=== PATIENT | female | born 1995 | race Caucasian/White ===

== ENCOUNTER 2016-11-03 15:04 | Emergency (ER) | payer OTHER ==
[~2016-11-03] VITALS: Ht 177.8 cm; Wt 53.5 kg
[~2016-11-03 15:04] MED LIST: ACET50TAOT PO; DOXY-278 PO; IBUPOTC PO
[2016-11-03] MEDS ORDERED: ONDANSETRON 4MG/2ML VIAL (J2405) IV ONE (17:45)
[2016-11-03] MEDS ORDERED: PANTOPRAZOLE 40MG INJ (PROTONIX) (C9113) IV ONE (17:45)
[2016-11-03 18:04] LABS: CONTROL LINE UCG INT CTR LINE PRESENT
[2016-11-03 18:15] LABS: BASO % 0.7 % (0.0-1.0); EOS # 0.2 K/mm3 (0.0-0.50); EOS % 3.6 % (0.0-3.0); LARGE UNSTAINED CELL # 0.1 K/mm3 (0.0-0.4); LARGE UNSTAINED CELL % 1.1 % (0.0-4.0); LYMPH # 1.9 K/mm3 (1.5-6.5); LYMPH % 36.6 % (24.0-44.0); MEAN CORPUSCULAR HEMOGLOBIN 28.9 pg (27.0-33.0); MEAN CORPUSCULAR HGB CONC 32.1 g/dl (32.0-36.5); MEAN CORPUSCULAR VOLUME 89.9 fl (80.0-96.0); MONO # 0.3 K/mm3 (0.0-0.8); NEUTROPHILS # 2.6 K/mm3 (1.8-7.7); PLATELET COUNT, AUTOMATED 281 k/mm3 (150-450); RED CELL DISTRIBUTION WIDTH 13.8 % (11.5-14.5); WHITE BLOOD COUNT 4.9 K/mm3 (4.0-10.0)
[2016-11-03 18:41] LABS: ALBUMIN 4.1 GM/DL (3.2-5.2); ALBUMIN/GLOBULIN RATIO 1.21 (1.00-1.93); ALKALINE PHOSPHATASE 78 U/L (45-117); ALT/SGPT 26 U/L (12-78); ANION GAP 6 MEQ/L (8-16); AST/SGOT 19 U/L (15-37); BILIRUBIN,DIRECT 0.1 MG/DL (0.0-0.2); BILIRUBIN,TOTAL 0.3 MG/DL (0.2-1.0); BLOOD UREA NITROGEN 16 MG/DL (7-18); CALCIUM LEVEL 9.3 MG/DL (8.5-10.1); CARBON DIOXIDE LEVEL 29 MEQ/L (21-32); CHLORIDE LEVEL 106 MEQ/L (98-107); GLUCOSE, FASTING 84 MG/DL (70-105); SODIUM LEVEL 141 MEQ/L (136-145); TOTAL PROTEIN 7.5 GM/DL (6.4-8.2)
--- NOTE | 2016-11-03 18:45 | REP ---
Clinical: Chest pain . Comparison: 03/01/2016 . Technique: PA and lateral. Findings: The mediastinum and cardiac silhouette are normal. The lung vill[place]uerte are clear and without acute consolidation, effusion, or pneumothorax. The skeletal structures are intact and normal. Impression: 1. No acute cardiopulmonary process. Signed by Jaen Marie Sweeney MD 11/03/2016 06:36 P
[2016-11-03 21:14] VITALS: BP 129/75
--- NOTE | 2016-11-04 09:20 | REP ---
PELVIC ULTRASOUND: Real-time sonographic evaluation of the pelvis is performed utilizing transabdominal technique. The bladder measures 3.9 x 2.0 x 6.2 cm. The uterus measures 5.8 x 3.0 x 3.6 cm. The endometrial stripe measures 2 mm with no endometrial fluid collection. The ovaries cannot be seen. No adnexal mass or free fluid is seen. The study is limited due to bowel gas and suboptimal distention of the bladder. The patient declined endovaginal ultrasound. IMPRESSION: No gross mass or free fluid in the pelvis. Suboptimal exam. The patient declined endovaginal exam. The ovaries could not be visualized. Signed by Kingston Jenkins MD 11/04/2016 12:28 P
--- NOTE | 2016-11-04 20:54 | ECGEPIP ---
Stationary ECG Study [facility] - ED Test Date: 2016-11-03 Pat Name: BREANNA FARAH Department: Room: - Gender: F Traffic Control Supervisor: nuno : 1995 Requested By: René Nogueira PA-C Order Number: [id number] Reading MD: Jacqueline Connor Measurements Intervals [place] Rate: 87 P: 62 AR: 145 QRS: 59 QRSD: 89 T: 38 QT: 336 QTc: 405 Interpretive Statements SINUS RHYTHM INCREASED RATE 06/05/14 Electronically Signed On 11-04-2016 20:53:50 EDT by Jacqueline Connor
== END 2016-11-03 21:16 | disposition left against medical advice (07) ==
LOC: M ED 16:15
DX: R10.9 Unspecified abdominal pain (principal); R07.9 Chest pain, unspecified; F50.00 Anorexia nervosa, unspecified; F17.210 Nicotine dependence, cigarettes, uncomplicated
CPT/HCPCS: 71020; 76856; 80048; 80076; 81001; 82550; 82553; 83690; 84703; 85025; 85379; 93005; 96374; 96375; 99283; C9113; J2405

== ENCOUNTER → 2018-06-30 | Outpatient (REF) | payer OTHER ==
[2018-06-30 13:12] LABS: CONTROL LINE UCG INT CTR LINE PRESENT; URINE PREG TEST NEGATIVE (NEGATIVE)
== END ==
LOC: M SFHCADAM 12:36
DX: N94.6 Dysmenorrhea, unspecified (principal)

== ENCOUNTER → 2018-07-31 | Outpatient (CLI) | payer OTHER ==
[~2018-07-31] MED LIST changes: +ACET500T15 PO; -ACET50TAOT PO; -DOXY-278 PO; +DOXY-350 PO
--- NOTE | 2018-08-01 03:49 | REP ---
Clinical: Trauma. Technique: AP, lateral, bilateral oblique views right wrist . Findings: The carpal bones, surrounding osseous structures, soft tissues, and joint spaces are normal. There is no evidence for acute fracture or dislocation. No subcutaneous emphysema or radiodense foreign body. Impression: Normal wrist series. No acute fracture or dislocation Electronically Signed by Jean Marie Sweeney MD 08/01/2018 03:40 A
--- NOTE | 2018-08-01 03:50 | REP ---
Clinical: Trauma. Technique: AP, lateral, bilateral oblique and sunrise views right knee . Findings: The osseous structures and joint spaces are intact and normal. There is no evidence for acute fracture or dislocation. No joint effusion is appreciated. Surrounding soft tissues are unremarkable. No subcutaneous emphysema or radiodense foreign body. Impression: Normal examination. No acute fracture or dislocation. Electronically Signed by Jean Marie Sweeney MD 08/01/2018 03:41 A
== END ==
LOC: M ADAMS 13:19
PROVIDERS: ATTEND Family Medicine
DX: M25.531 Pain in right wrist (principal); M23.51 Chronic instability of knee, right knee

== ENCOUNTER 2019-02-13 08:12 | Emergency (ER) | payer OTHER ==
[~2019-02-13] VITALS: Ht 177.8 cm; Wt 97.3 kg
[2019-02-13 08:12] VITALS: BP 142/95
[2019-02-13] MEDS ORDERED: HYDR-3363 PO (08:18)
[2019-02-13] MEDS ORDERED: IBUP-1022 PO (08:18)
== END 2019-02-13 08:58 | disposition home or self-care (01) ==
LOC: M ED 08:12
DX: G89.29 Other chronic pain (principal); M25.561 Pain in right knee; M25.562 Pain in left knee; F17.210 Nicotine dependence, cigarettes, uncomplicated

== ENCOUNTER 2019-03-18 15:26 | Emergency (ER) | payer OTHER ==
[~2019-03-18] VITALS: Ht 177.8 cm; Wt 97.4 kg
[~2019-03-18 15:26] MED LIST changes: +HYDR-3363 PO; +IBUP-1022 PO
[2019-03-18 16:17] LABS: HEMATOCRIT 37.5 % (36.0-47.0); HEMOGLOBIN 11.9 g/dl (12.0-15.5); MEAN CORPUSCULAR HEMOGLOBIN 27.3 pg (27.0-33.0); MEAN CORPUSCULAR HGB CONC 31.7 g/dl (32.0-36.5); PLATELET COUNT, AUTOMATED 363 10^3/uL (150-450); RED BLOOD COUNT 4.36 10^6/uL (4.00-5.40); WHITE BLOOD COUNT 8.7 10^3/uL (4.0-10.0)
[2019-03-18 16:48] LABS: BLOOD UREA NITROGEN 8 MG/DL (7-18); CALCIUM LEVEL 9.3 MG/DL (8.5-10.1); CARBON DIOXIDE LEVEL 28 MEQ/L (21-32); CHLORIDE LEVEL 105 MEQ/L (98-107); CREATININE FOR GFR 0.64 MG/DL (0.55-1.30); GLOMERULAR FILTRATION RATE > 60.0 (>60); GLUCOSE, FASTING 78 MG/DL (70-100); POTASSIUM SERUM 4.1 MEQ/L (3.5-5.1); SODIUM LEVEL 139 MEQ/L (136-145)
[2019-03-18] MEDS ORDERED: MUPIROCIN 2% OINT 22 GM TUBE TOP ONE (17:45)
[2019-03-18 17:56] VITALS: BP 135/78
[2019-03-18 19:43] LABS: CHLAMYDIA DNA AMPLIFICATION NEGATIVE (NEGATIVE); GC DNA AMPLIFICATION NEGATIVE (NEGATIVE)
== END 2019-03-18 18:28 | disposition home or self-care (01) ==
LOC: M ED 15:26
DX: L03.314 Cellulitis of groin (principal); R22.9 Localized swelling, mass and lump, unspecified; F33.9 Major depressive disorder, recurrent, unspecified; F41.9 Anxiety disorder, unspecified; K58.9 Irritable bowel syndrome, unspecified; Z77.098 Contact with and (suspected) exposure to other hazardous, chiefly nonmedicinal, chemicals; F12.20 Cannabis dependence, uncomplicated

== ENCOUNTER → 2019-03-23 | Outpatient (CLI) | payer OTHER ==
--- NOTE | 2019-03-23 09:44 | REP ---
MRI BILATERAL KNEES: TECHNIQUE: Axial proton density fat saturation, sagittal proton density T2 STIR, water excitation, coronal proton density, proton density fat saturation. RIGHT KNEE: The menisci appear intact with no evidence of a tear. The cruciate and collateral ligaments are intact. The extensor mechanism is intact. A 5 mm cyst is seen along the tibial insertion of the anterior cruciate ligament lateral aspect. There is mild chondromalacia of the patella. Medial and lateral patellar retinacula are intact. There is mild marrow edema in the upper aspect of the lateral femoral condyle. This is suggesting a mild bone bruise. There is also mild marrow edema in the lower pole of the patella, possibly a bone bruise or stress related changes in the bone. There is a small joint effusion. No popliteal cyst is seen. The ratio of patellar tendon length to patellar length is approximately 1.5, compatible with patella kristina. IMPRESSION: No evidence of internal derangement. Mild chondromalacia of the patella. A 5 mm cyst along the lateral margin of the anterior cruciate ligament tibial insertion. Small joint effusion. Nonspecific marrow edema in the lower pole of the patella and upper aspect of lateral femoral condyle. The ratio of patellar tendon length to patellar length is approximately 1.5, compatible with patella kristina. LEFT KNEE: The menisci are intact. Cruciate and collateral ligaments are intact. Extensor mechanism was intact. There is mild chondromalacia of the patella. The medial and lateral patellar retinacula are intact. There is no bone marrow edema or occult fracture. There is a normal amount of joint fluid. There is a sliver of fluid in the medial popliteal fossa between the semimembranous and medial head of gastrocnemius. I see no other significant finding. The ratio of the patellar tendon length to the length of the patella is approximately 1.35, compatible with patella kristina. IMPRESSION: Mild chondromalacia of the patella. No evidence of internal derangement. Sliver of fluid in the medial popliteal fossa. The ratio of the patellar tendon length to the length of the patella is approximately 1.35, compatible with patella kristina. Electronically Signed by Kingston Jenkins MD 03/26/2019 11:12 A
== END ==
LOC: M RAD 06:33
PROVIDERS: ATTEND Orthopaedic Surgery Sports Medicine
DX: M25.361 Other instability, right knee (principal); M25.362 Other instability, left knee

== ENCOUNTER 2019-05-15 09:50 | Emergency (ER) | payer OTHER ==
[~2019-05-15] VITALS: Ht 177.8 cm; Wt 96.6 kg
[2019-05-15 13:18] VITALS: BP 130/70
== END 2019-05-15 13:19 | disposition home or self-care (01) ==
LOC: M ED 09:50
DX: Z20.1 Contact with and (suspected) exposure to tuberculosis (principal)

== ENCOUNTER 2019-11-03 16:44 | Emergency (ER) | payer OTHER, SELFPAY ==
[~2019-11-03] VITALS: Ht 177.8 cm; Wt 86.1 kg
[2019-11-03 17:49] VITALS: BP 144/88
--- NOTE | 2019-11-03 20:40 | ED PDOC ---
Post-Departure Follow-Up called patient with respiratory panel results and educated her on standard URI precautions. all questions answered and patient was in good understanding JOSE SANTOS PA-C. Nov 03, 2019 20:40
== END 2019-11-03 17:52 | disposition home or self-care (01) ==
LOC: M ED 16:44
DX: J02.8 Acute pharyngitis due to other specified organisms (principal); R05 Cough; F41.9 Anxiety disorder, unspecified; F32.9 Major depressive disorder, single episode, unspecified; J45.909 Unspecified asthma, uncomplicated; R63.0 Anorexia

== ENCOUNTER 2019-12-31 19:08 | Inpatient (IN) | payer MEDICAID, OTHER, SELFPAY ==
[~2019-12-31] VITALS: Ht 177.8 cm; Wt 50.0 kg
[2019-12-31] MEDS ORDERED: NICOTINE 21MG/24HR 1 EA TRANSDERMAL TD ONE (19:45)
[2019-12-31 20:14] LABS: HEMATOCRIT 36.3 % (36.0-47.0); HEMOGLOBIN 11.6 g/dl (12.0-15.5); MEAN CORPUSCULAR HEMOGLOBIN 26.3 pg (27.0-33.0); MEAN CORPUSCULAR VOLUME 82.3 fl (80.0-96.0); PLATELET COUNT, AUTOMATED 535 10^3/uL (150-450); RED BLOOD COUNT 4.41 10^6/uL (4.00-5.40); WHITE BLOOD COUNT 7.9 10^3/uL (4.0-10.0)
[2019-12-31 20:37] LABS: HCG, SERUM QUALITATIVE NEGATIVE (NEGATIVE)
[2019-12-31 20:48] LABS: ALT/SGPT 20 U/L (12-78); BILIRUBIN,DIRECT 0.2 MG/DL (0.0-0.2); BILIRUBIN,TOTAL 0.3 MG/DL (0.2-1.0); BLOOD UREA NITROGEN 5 MG/DL (7-18); CALCIUM LEVEL 8.9 MG/DL (8.5-10.1); CARBON DIOXIDE LEVEL 24 MEQ/L (21-32); CHLORIDE LEVEL 116 MEQ/L (98-107); CREATININE FOR GFR 0.68 MG/DL (0.55-1.30); ETHYL ALCOHOL (ETHANOL) 0.296 % (0.000-0.010); GLOMERULAR FILTRATION RATE > 60.0 (>60); GLUCOSE, FASTING 121 MG/DL (70-100); SALICYLATE LEVEL < 1.7 MG/DL (5.0-30.0); SODIUM LEVEL 147 MEQ/L (136-145); THYROID STIMULATING HORMONE 0.779 uIU/ML (0.358-3.740); TOTAL PROTEIN 7.8 GM/DL (6.4-8.2)
[2019-12-31 20:49] LABS: ACETAMINOPHEN LEVEL < 2.0 UG/ML (10.0-30.0)
[2019-12-31] MEDS ORDERED: OLANZapine ORAL DISINTEGRATING TAB 5MG PO SCH (21:00)
[2019-12-31 21:02] LABS: AMPHETAMINES LEVEL URINE POSITIVE (NEGATIVE); BARBITURATES URINE NEGATIVE (NEGATIVE); BENZODIAZEPINES URINE NEGATIVE (NEGATIVE); CANNABINOIDS URINE NEGATIVE (NEGATIVE); COCAINE METABOLITE URINE NEGATIVE (NEGATIVE); METHADONE URINE NEGATIVE (NEGATIVE); OPIATES URINE NEGATIVE (NEGATIVE); PHENCYCLIDINE URINE NEGATIVE (NEGATIVE)
[2020-01-01] MEDS ORDERED: MOM 30ML SUSPENSION UDC PO PRN (06:00)
[2020-01-01] MEDS ORDERED: OLANZapine ORAL DISINTEGRATING TAB 5MG PO PRN (06:00)
[2020-01-01] MEDS ORDERED: ACETAMINOPHEN TAB 650MG DOSE (2X325MG) PO PRN (06:00)
[2020-01-01] MEDS ORDERED: MAALOX 30 ML SUSP *UDC PO PRN (06:00)
[2020-01-01] MEDS ORDERED: traZODone 50 MG TAB PO PRN (06:00)
[2020-01-01] MEDS ORDERED: ACETAMINOPHEN 325 MG TAB As Ordered ONE (07:08)
[2020-01-01 11:00] VITALS: BP 150/94
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
--- NOTE | 2020-01-01 11:29 | MHDSPDOC ---
[facility] Discharge Summary Discharge Summary DATE OF ADMISSION: January 01, 2020 at 05:54 DATE OF DISCHARGE: 01/01/20 please see h/p for same day discharge dx, clinical course and reasoning Vital Signs/I&Os Vital Signs Date Time Temp Pulse Resp B/P (MAP) Pulse Ox O2 Delivery O2 Flow Rate FiO2 01/01/20 06:52 97.8 93 18 138/80 (99) 100 Laboratory Data Labs 24H Laboratory Tests 2 12/31/19 19:54: Nucleated Red Blood Cells % (auto) 0.0, Anion Gap 7L, Glomerular Filtration Rate > 60.0, Calcium Level 8.9, Total Bilirubin 0.3, Direct Bilirubin 0.2, Aspartate Amino Transf (AST/SGOT) 17, Alanine Aminotransferase (ALT/SGPT) 20, Alkaline Phosphatase 96, Total Protein 7.8, Albumin 4.0, Albumin/Globulin Ratio 1.1L, Thyroid Stimulating Hormone (TSH) 0.779, Human Chorionic Gonadotropin, Qual NEGATIVE, Salicylates Level < 1.7L, Urine Opiates Screen NEGATIVE, Urine Methadone Screen NEGATIVE, Acetaminophen Level < 2.0L, Urine Barbiturates Screen NEGATIVE, Urine Phencyclidine Screen NEGATIVE, Urine Amphetamines Screen POSITIVEH, Urine Benzodiazepines Screen NEGATIVE, Urine Cocaine Metabolite Screen NEGATIVE, Urine Cannabinoids Screen NEGATIVE, Ethyl Alcohol Level 0.296H CBC/BMP Laboratory Tests 12/31/19 19:54 Medications Unable to Obtain Active Prescriptions or Reported Meds Allergies Coded Allergies: No Known Allergies (Unverified , 02/24/16) ROBERTO GREGORIO DO January 01, 2020 11:28
--- NOTE | 2020-01-01 15:09 | ECGEPIP ---
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
--- NOTE | 2020-01-01 15:58 | HPEPDOC ---
General Date of Admission January 01, 2020 at 05:54 Date of Service: January 01, 2020 Chief Complaint The patient is a 24-year-old female admitted with a reason for visit of Unspecified Mood Disorder. Source: Patient Exam Limitations: No limitations Timing/Duration: Day(s) Severity: Moderate History of Present Illness HISTORY OF PRESENT ILLNESS: Patient is 23 years old female with past medical history of bipolar disorder and depression, who was admitted in the hospital with suicidal ideation. She denied any cardiovascular problem, breathing problem, GI problem or dysuria. He denies fever, chills, nausea, vomiting, shortness of breath, palpitations, diarrhea or dysuria. Early in the morning patient had some chest discomfort, intermittent without any radiation. EKG was normal Home Medications Unable to Obtain Active Prescriptions or Reported Meds Allergies Coded Allergies: No Known Allergies (Unverified , 02/24/16) Past Medical History Medical History Bipolar disorder, depression Family History Mother from alcoholism Father had CHF Social History * Smoker: current smoker Alcohol: heavy Drugs: marijuana A-FIB/CHADSVASC A-FIB History Current/History of A-Fib/PAF?: No Current PO Anticoag Therapy: No Review of Systems Constitutional: Denies: Chills Eyes: Denies: Vision change ENT: Denies: Head Aches Skin: Denies: Rash, Lesions Pulmonary: Denies: Dyspnea Cardiovascular: Denies: Chest Pain Gastrointestinal: Denies: Nausea, Vomiting Genitourinary: Denies: Dysuria Hematologic: Denies: Bruising Endocrine: Denies: Polydipsia Musculoskeletal: Denies: Neck Pain Neurological: Denies: Weakness Psych: Reports: Anxiety; Denies: Mood Normal Physical Examination General Exam: Positive: Alert Eye Exam: Positive: PERRLA ENT Exam: Positive: Atraumatic Neck Exam: Positive: Supple; Negative: JVD Chest Exam: Positive: Clear to auscultation Heart Exam: Positive: Rate Normal Telemetry: Positive: No significant arrhythmia Abdomen Exam: Positive: Normal bowel sounds Extremity Exam: Negative: Clubbing Skin Exam: Positive: Nl turgor and temperature Neuro Exam: Positive: Strength at 5/5 X4 ext Psych Exam: Positive: Anxiety Vital Signs Vital Signs Date Time Temp Pulse Resp B/P (MAP) Pulse Ox O2 Delivery O2 Flow Rate FiO2 01/01/20 11:00 98.3 80 16 150/94 (112) 100 Room Air Laboratory Data Labs 24H Laboratory Tests 2 12/31/19 19:54: Nucleated Red Blood Cells % (auto) 0.0, Anion Gap 7L, Glomerular Filtration Rate > 60.0, Calcium Level 8.9, Total Bilirubin 0.3, Direct Bilirubin 0.2, Aspartate Amino Transf (AST/SGOT) 17, Alanine Aminotransferase (ALT/SGPT) 20, Alkaline Phosphatase 96, Total Protein 7.8, Albumin 4.0, Albumin/Globulin Ratio 1.1L, Thyroid Stimulating Hormone (TSH) 0.779, Human Chorionic Gonadotropin, Qual NEGATIVE, Salicylates Level < 1.7L, Urine Opiates Screen NEGATIVE, Urine Methadone Screen NEGATIVE, Acetaminophen Level < 2.0L, Urine Barbiturates Screen NEGATIVE, Urine Phencyclidine Screen NEGATIVE, Urine Amphetamines Screen PO SITIVEH, Urine Benzodiazepines Screen NEGATIVE, Urine Cocaine Metabolite Screen NEGATIVE, Urine Cannabinoids Screen NEGATIVE, Ethyl Alcohol Level 0.296H CBC/BMP Laboratory Tests 12/31/19 19:54 Assessment/Plan Patient is 23 years old female with past medical history of bipolar disorder and depression, who was admitted in the hospital with suicidal ideation. She denied any cardiovascular problem, breathing problem, GI problem or dysuria. He denies fever, chills, nausea, vomiting, shortness of breath, palpitations, diarrhea or dysuria. Early in the morning patient had some chest discomfort, intermittent without any radiation. EKG was normal Problems (1) Unspecified mood [affective] disorder Status: Acute Problem Text: will defer treatment to psych team (2) Chest pain Status: Acute Problem Text: Unlikely cardiac etiology EKG was normal Plan / VTE VTE Prophylaxis Ordered?: No VTE Exclusion Mechanical Proph: Low Risk for VTE MANUEL SMITH DO January 01, 2020 15:58
== END 2020-01-01 16:33 | disposition home or self-care (01) | DRG 775 ==
LOC: M ED 19:08 → M ED INP 01-01 05:54 → M PSY 01-01 10:33
PROVIDERS: ADMIT Psychiatry & Neurology Psychiatry; ATTEND Psychiatry & Neurology Addiction Medicine
DX: F19.94 Other psychoactive substance use, unspecified with psychoactive substance-induced mood disorder (principal); F10.10 Alcohol abuse, uncomplicated; F15.90 Other stimulant use, unspecified, uncomplicated; F17.200 Nicotine dependence, unspecified, uncomplicated; R07.9 Chest pain, unspecified

== ENCOUNTER → 2020-02-01 | Outpatient (CLI) | payer MEDICAID, OTHER ==
[2020-02-01 11:54] LABS: BASO # 0.1 10^3/uL (0.0-0.2); BASO % 1.3 % (0.0-1.0); EOS # 0.2 10^3/uL (0.0-0.5); EOS % 4.3 % (0.0-3.0); HEMATOCRIT 29.2 % (36.0-47.0); HEMOGLOBIN 8.9 g/dl (12.0-15.5); LYMPH # 1.7 10^3/uL (1.5-5.0); MEAN CORPUSCULAR HEMOGLOBIN 25.6 pg (27.0-33.0); MEAN CORPUSCULAR HGB CONC 30.5 g/dl (32.0-36.5); MEAN CORPUSCULAR VOLUME 84.1 fl (80.0-96.0); MONO # 0.3 10^3/uL (0.0-0.8); MONO % 7.1 % (0.0-5.0); NEUTROPHILS # 1.8 10^3/uL (1.5-8.5); PLATELET COUNT, AUTOMATED 426 10^3/uL (150-450); RED BLOOD COUNT 3.47 10^6/uL (4.00-5.40); WHITE BLOOD COUNT 3.9 10^3/uL (4.0-10.0)
[2020-02-01 12:30] LABS: ALBUMIN 3.6 GM/DL (3.2-5.2); ALT/SGPT 16 U/L (12-78); BILIRUBIN,TOTAL 0.4 MG/DL (0.2-1.0); BLOOD UREA NITROGEN 9 MG/DL (7-18); CALCIUM LEVEL 9.2 MG/DL (8.5-10.1); CARBON DIOXIDE LEVEL 26 MEQ/L (21-32); CHLORIDE LEVEL 107 MEQ/L (98-107); CHOLESTEROL LEVEL 130 MG/DL (<200); CREATININE FOR GFR 0.53 MG/DL (0.55-1.30); FREE THYROXINE INDEX 2.9 % (1.3-4.8); GLOMERULAR FILTRATION RATE > 60.0 (>60); GLUCOSE, FASTING 77 MG/DL (70-100); HDL CHOLESTEROL 57 MG/DL (>40); LDL CHOLESTEROL 63 MG/DL (<100); NON-HDL-C 73 MG/DL; SODIUM LEVEL 138 MEQ/L (136-145); T UPTAKE 35 % (30-39); THYROXINE (T4) 8.2 UG/DL (4.5-12.0); TOTAL PROTEIN 6.8 GM/DL (6.4-8.2); TRIGLYCERIDES LEVEL 52 MG/DL (<150)
--- NOTE | 2020-02-02 13:01 | ECGEPIP ---
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
== END ==
LOC: M LAB 09:46
PROVIDERS: ATTEND Nurse Practitioner Psychiatric/Mental Health
DX: F34.1 Dysthymic disorder (principal); F50.9 Eating disorder, unspecified

== ENCOUNTER → 2020-03-17 | Outpatient (CLI) | payer OTHER | LOC: M RAD 11:12 | PROVIDERS: ATTEND Physician Assistant | DX: M25.512 Pain in left shoulder (principal) ==

== ENCOUNTER → 2020-04-09 | Outpatient (REF) | payer OTHER ==
[2020-04-09 19:37] LABS: APPEARANCE, URINE TURBID (CLEAR); BACTERIA, URINE AUTO 1+ (NEGATIVE); BILIRUBIN, URINE AUTO NEGATIVE (NEGATIVE); BLOOD, URINE BLOOD NEGATIVE (NEGATIVE); COLOR, URINE YELLOW (YELLOW); GLUCOSE, URINE (UA) AUTO NEGATIVE (NEGATIVE); KETONE, URINE AUTO NEGATIVE (NEGATIVE); LEUKOCYTE ESTERASE, URINE AUTO NEGATIVE (NEGATIVE); NITRITE, URINE AUTO NEGATIVE (NEGATIVE); PROTEIN, URINE AUTO NEGATIVE (NEGATIVE); RBC, URINE AUTO 0 /HPF (0-3); SPECIFIC GRAVITY URINE AUTO 1.011 (1.002-1.035); SQUAMOUS EPITHELIAL CELL UR AU 0 /HPF (0-6); UROBILINOGEN, URINE AUTO 0.2 mg/dL (0.0-2.0); WBC, URINE AUTO 0 /HPF (0-3)
[2020-04-09 21:24] LABS: CHLAMYDIA DNA AMPLIFICATION NEGATIVE (NEGATIVE); GC DNA AMPLIFICATION NEGATIVE (NEGATIVE)
== END ==
LOC: M LAB REF 19:04
PROVIDERS: ATTEND Physician Assistant
DX: N39.0 Urinary tract infection, site not specified (principal)

== ENCOUNTER → 2020-08-07 | Outpatient (REF) | payer OTHER ==
[2020-08-07 13:37] LABS: APPEARANCE, URINE HAZY (CLEAR); BACTERIA, URINE AUTO NEGATIVE (NEGATIVE); BILIRUBIN, URINE AUTO NEGATIVE (NEGATIVE); BLOOD, URINE BLOOD NEGATIVE (NEGATIVE); COLOR, URINE YELLOW (YELLOW); GLUCOSE, URINE (UA) AUTO NEGATIVE (NEGATIVE); KETONE, URINE AUTO NEGATIVE (NEGATIVE); LEUKOCYTE ESTERASE, URINE AUTO NEGATIVE (NEGATIVE); MUCUS, URINE SMALL (NEGATIVE); NITRITE, URINE AUTO NEGATIVE (NEGATIVE); PROTEIN, URINE AUTO NEGATIVE (NEGATIVE); RBC, URINE AUTO 1 /HPF (0-3); SPECIFIC GRAVITY URINE AUTO 1.013 (1.002-1.035); SQUAMOUS EPITHELIAL CELL UR AU 7 /HPF (0-6); UROBILINOGEN, URINE AUTO 0.2 mg/dL (0.0-2.0); WBC, URINE AUTO 1 /HPF (0-3)
[2020-08-07 15:29] LABS: CHLAMYDIA DNA AMPLIFICATION NEGATIVE (NEGATIVE); GC DNA AMPLIFICATION NEGATIVE (NEGATIVE)
== END ==
LOC: M LAB REF 12:58
PROVIDERS: ATTEND Physician Assistant
DX: N39.0 Urinary tract infection, site not specified (principal)

== ENCOUNTER → 2020-10-07 | Outpatient (CLI) | payer OTHER ==
--- NOTE | 2020-10-07 11:51 | REP ---
INDICATION: RT RIB PAIN, R/O FRACTURE. COMPARISON: November 03, 2016.. TECHNIQUE: Four views including PA chest. FINDINGS: PA chest radiograph is normal. There is no evidence of pneumothorax or hydrothorax. Mediastinum is not widened. Heart size is normal. Pulmonary vasculature is not increased. Multiple views of the right rib cage show intact right ribs without evidence of rib fracture or bony destructive lesion. IMPRESSION: Negative right rib series. <Electronically signed by Sloan Montenegro > 10/07/20 1142
== END ==
LOC: M RAD 11:20
PROVIDERS: ATTEND Physician Assistant Medical
DX: R07.81 Pleurodynia (principal)

== ENCOUNTER 2021-03-13 23:27 | Emergency (ER) | payer OTHER ==
[~2021-03-13] VITALS: Ht 177.8 cm; Wt 61.9 kg
[2021-03-13 23:31] VITALS: BP 158/92
[2021-03-14] MEDS ORDERED: TOPA50TA8 PO (00:27)
== END 2021-03-14 00:30 | disposition left against medical advice (07) ==
LOC: M ED 23:27
DX: Z53.21 Procedure and treatment not carried out due to patient leaving prior to being seen by health care provider (principal)

== ENCOUNTER 2022-01-30 17:07 | Emergency (ER) | payer OTHER ==
[~2022-01-30] VITALS: Ht 177.8 cm; Wt 77.2 kg
[~2022-01-30 17:07] MED LIST changes: +TOPA50TA8 PO
[2022-01-30] MEDS ORDERED: NAPR-837 PO (18:40)
[2022-01-30 18:51] VITALS: BP 140/90
== END 2022-01-30 19:04 | disposition home or self-care (01) ==
LOC: M ED 17:07
DX: M72.2 Plantar fascial fibromatosis (principal)

== ENCOUNTER 2022-02-15 06:05 | Emergency (ER) | payer OTHER ==
[~2022-02-15] VITALS: Ht 177.8 cm; Wt 63.6 kg
[~2022-02-15 06:05] MED LIST changes: +NAPR-837 PO
[2022-02-15] MEDS ORDERED: ACETAMINOPHEN 325 MG TAB PO ONE (07:35)
[2022-02-15 07:37] LABS: BASO # 0.1 10^3/uL (0.0-0.2); BASO % 1.8 % (0.0-1.0); EOS # 0.4 10^3/uL (0.0-0.5); EOS % 5.7 % (0.0-3.0); LYMPH # 1.2 10^3/uL (1.5-5.0); LYMPH % 20.2 % (24.0-44.0); MEAN CORPUSCULAR HEMOGLOBIN 16.1 pg (27.0-33.0); MEAN CORPUSCULAR HGB CONC 25.8 g/dl (32.0-36.5); MEAN CORPUSCULAR VOLUME 62.5 fl (80.0-96.0); MONO # 0.6 10^3/uL (0.0-0.8); MONO % 9.3 % (2.0-8.0); NEUTROPHILS # 3.8 10^3/uL (1.5-8.5); NEUTROPHILS % 62.3 % (36.0-66.0); PLATELET COUNT, AUTOMATED 510 10^3/uL (150-450); RED BLOOD COUNT 3.84 10^6/uL (4.00-5.40); WHITE BLOOD COUNT 6.1 10^3/uL (4.0-10.0)
[2022-02-15 07:40] LABS: HEMOGLOBIN 6.2 g/dl (12.0-15.5)
[2022-02-15 07:52] LABS: INR 1.01; PROTHROMBIN TIME 13.7 SECONDS (12.7-14.5)
[2022-02-15 07:54] LABS: BLOOD UREA NITROGEN 15 MG/DL (7-18); CALCIUM LEVEL 9.6 MG/DL (8.5-10.1); CARBON DIOXIDE LEVEL 26 MEQ/L (21-32); CHLORIDE LEVEL 108 MEQ/L (98-107); CREATININE FOR GFR 0.59 MG/DL (0.55-1.30); GLOMERULAR FILTRATION RATE > 60.0 (>60); GLUCOSE, FASTING 95 MG/DL (70-100); POTASSIUM SERUM 4.1 MEQ/L (3.5-5.1); SODIUM LEVEL 141 MEQ/L (136-145)
[2022-02-15 07:57] LABS: PARTIAL THROMBOPLASTIN TIME 22.7 SECONDS (25.9-37.0)
[2022-02-15 08:03] LABS: HCG, SERUM QUALITATIVE NEGATIVE (NEGATIVE)
[2022-02-15 10:25] VITALS: BP 130/65
[2022-02-15 11:10] VITALS: BP 133/71
[2022-02-15 11:39] VITALS: BP 138/74
[2022-02-15 12:39] VITALS: BP 146/85
== END 2022-02-15 12:47 | disposition home or self-care (01) ==
LOC: M ED 06:05
DX: R22.42 Localized swelling, mass and lump, left lower limb (principal); D64.9 Anemia, unspecified; I10 Essential (primary) hypertension; F17.200 Nicotine dependence, unspecified, uncomplicated
CPT/HCPCS: 36430; 80048; 84703; 85025; 85610; 85730; 86850; 86900; 86901; 86920; 93971; 99284; P9016

== ENCOUNTER 2022-04-22 21:02 | Emergency (ER) | payer OTHER ==
[~2022-04-22] VITALS: Ht 177.8 cm; Wt 77.9 kg
[2022-04-22 21:05] VITALS: BP 136/94
[2022-04-22] MEDS ORDERED: CEPH500T PO (21:26)
[2022-04-22] MEDS ORDERED: TOPA50TA8 PO (21:26)
== END 2022-04-23 02:17 | disposition left against medical advice (07) ==
LOC: M ED 21:02
DX: Z53.21 Procedure and treatment not carried out due to patient leaving prior to being seen by health care provider (principal)

== ENCOUNTER 2022-05-09 16:16 | Emergency (ER) | payer OTHER ==
[~2022-05-09] VITALS: Ht 177.8 cm; Wt 76.8 kg
[~2022-05-09 16:16] MED LIST changes: +CEPH500T PO
[2022-05-09 18:05] LABS: BASO # 0.1 10^3/uL (0.0-0.2); EOS # 0.2 10^3/uL (0.0-0.5); EOS % 4.8 % (0.0-3.0); HEMATOCRIT 33.9 % (36.0-47.0); HEMOGLOBIN 8.9 g/dl (12.0-15.5); LYMPH % 22.8 % (24.0-44.0); MEAN CORPUSCULAR HEMOGLOBIN 18.5 pg (27.0-33.0); MEAN CORPUSCULAR HGB CONC 26.3 g/dl (32.0-36.5); MEAN CORPUSCULAR VOLUME 70.3 fl (80.0-96.0); MONO # 0.3 10^3/uL (0.0-0.8); MONO % 6.6 % (2.0-8.0); NEUTROPHILS # 2.9 10^3/uL (1.5-8.5); NEUTROPHILS % 63.4 % (36.0-66.0); PLATELET COUNT, AUTOMATED 506 10^3/uL (150-450); RED BLOOD COUNT 4.82 10^6/uL (4.00-5.40); WHITE BLOOD COUNT 4.6 10^3/uL (4.0-10.0)
[2022-05-09 18:36] LABS: HCG, SERUM QUALITATIVE NEGATIVE (NEGATIVE)
[2022-05-09 18:39] LABS: ALBUMIN 4.3 GM/DL (3.2-5.2); ALT/SGPT 18 U/L (12-78); BILIRUBIN,DIRECT 0.2 MG/DL (0.0-0.2); BILIRUBIN,TOTAL 0.7 MG/DL (0.2-1.0); LIPASE 126 U/L (73-393); TOTAL PROTEIN 8.1 GM/DL (6.4-8.2)
[2022-05-09 20:03] LABS: FERRITIN 7 NG/ML (8-252); IRON (FE) 125 UG/DL (50-170); PERCENT SATURATION 22.3 % (13.2-45.0); TOTAL IRON BINDING CAPACITY 561 UG/DL (250-450)
[2022-05-09 20:17] VITALS: BP 149/97
[2022-05-09] MEDS ORDERED: NYSTOI TOP (20:20)
[2022-05-09] MEDS ORDERED: FERR325T3 PO (21:11)
[2022-05-09 21:42] LABS: GC DNA AMPLIFICATION NEGATIVE (NEGATIVE)
== END 2022-05-09 20:23 | disposition home or self-care (01) ==
LOC: M ED 16:16
DX: D64.9 Anemia, unspecified (principal); R21 Rash and other nonspecific skin eruption; R10.9 Unspecified abdominal pain; L29.2 Pruritus vulvae; H53.9 Unspecified visual disturbance; R51.9 Headache, unspecified; J45.909 Unspecified asthma, uncomplicated; F50.00 Anorexia nervosa, unspecified; F17.200 Nicotine dependence, unspecified, uncomplicated; Z79.899 Other long term (current) drug therapy

== ENCOUNTER 2022-11-03 22:01 | Emergency (ER) | payer OTHER ==
[~2022-11-03] VITALS: Ht 177.8 cm; Wt 82.0 kg
[~2022-11-03 22:01] MED LIST changes: -DOXY-350 PO; +DOXY-444 PO; +FERR325T3 PO; +NYSTOI TOP
[2022-11-03 22:06] VITALS: BP 140/83
[2022-11-03] MEDS ORDERED: TEST200I14 IM (22:12)
== END 2022-11-04 01:25 | disposition left against medical advice (07) ==
LOC: M ED 22:01
DX: Z53.21 Procedure and treatment not carried out due to patient leaving prior to being seen by health care provider (principal)

== ENCOUNTER → 2023-01-03 | Outpatient (REF) | payer OTHER ==
[~2023-01-03] MED LIST changes: +NYST100085 TOP; -NYSTOI TOP; +TEST200I14 IM
[2023-01-03 16:21] LABS: BASO # 0.1 10^3/uL (0.0-0.2); BASO % 1.4 % (0.0-1.0); EOS # 0.3 10^3/uL (0.0-0.5); EOS % 5.1 % (0.0-3.0); HEMATOCRIT 37.3 % (36.0-47.0); HEMOGLOBIN 11.2 g/dl (12.0-15.5); LYMPH % 19.4 % (24.0-44.0); MEAN CORPUSCULAR HEMOGLOBIN 24.8 pg (27.0-33.0); MEAN CORPUSCULAR VOLUME 82.7 fl (80.0-96.0); MONO # 0.5 10^3/uL (0.0-0.8); MONO % 10.2 % (2.0-8.0); NEUTROPHILS # 3.1 10^3/uL (1.5-8.5); NEUTROPHILS % 63.7 % (36.0-66.0); PLATELET COUNT, AUTOMATED 405 10^3/uL (150-450); RED BLOOD COUNT 4.51 10^6/uL (4.00-5.40); WHITE BLOOD COUNT 4.9 10^3/uL (4.0-10.0)
[2023-01-03 16:42] LABS: C REACTIVE PROTEIN QUANTITATIV < 0.40 MG/DL (<1.0)
[2023-01-03 16:43] LABS: ALBUMIN 3.8 G/DL (3.2-5.2); ALKALINE PHOSPHATASE 69 U/L (46-116); ALT/SGPT 21 U/L (7.0-40); AST/SGOT 28 U/L (<34); BILIRUBIN,TOTAL 0.7 MG/DL (0.3-1.2); BLOOD UREA NITROGEN 10 MG/DL (9-23); CALCIUM LEVEL 9.6 MG/DL (8.5-10.1); CARBON DIOXIDE LEVEL 28 MMOL/L (20-31); CHLORIDE LEVEL 105 MMOL/L (98-107); CREATININE FOR GFR 0.64 MG/DL (0.55-1.30); GLOMERULAR FILTRATION RATE > 60.0 (>60); GLUCOSE, FASTING 84 MG/DL (60-100); POTASSIUM SERUM 4.4 MMOL/L (3.5-5.1); SODIUM LEVEL 136 MMOL/L (136-145); TOTAL PROTEIN 6.7 G/DL (5.7-8.2)
[2023-01-03 16:45] LABS: THYROID STIMULATING HORMONE 0.943 uIU/ML (0.55-4.78)
[2023-01-03 17:35] LABS: ERYTHROCYTE SEDIMENTATION RATE 9 mm/hr (0-20)
== END ==
LOC: M SFHCADAM 14:23
PROVIDERS: ATTEND Family Medicine
DX: I10 Essential (primary) hypertension (principal); R21 Rash and other nonspecific skin eruption

== ENCOUNTER 2023-01-05 18:24 | Emergency (ER) | payer OTHER ==
[~2023-01-05] VITALS: Ht 177.8 cm; Wt 84.2 kg
[2023-01-05 18:26] VITALS: BP 157/102
[2023-01-05] MEDS ORDERED: NS 1,000 ML IV ONE (20:20)
[2023-01-05 20:32] LABS: BASO # 0.1 10^3/uL (0.0-0.2); BASO % 0.6 % (0.0-1.0); EOS # 0.1 10^3/uL (0.0-0.5); EOS % 1.2 % (0.0-3.0); HEMATOCRIT 37.6 % (36.0-47.0); HEMOGLOBIN 11.2 g/dl (12.0-15.5); LYMPH # 1.3 10^3/uL (1.5-5.0); MEAN CORPUSCULAR HEMOGLOBIN 24.7 pg (27.0-33.0); MEAN CORPUSCULAR HGB CONC 29.8 g/dl (32.0-36.5); MEAN CORPUSCULAR VOLUME 82.8 fl (80.0-96.0); MONO # 0.5 10^3/uL (0.0-0.8); MONO % 5.5 % (2.0-8.0); NEUTROPHILS # 6.7 10^3/uL (1.5-8.5); NEUTROPHILS % 77.5 % (36.0-66.0); PLATELET COUNT, AUTOMATED 392 10^3/uL (150-450); RED BLOOD COUNT 4.54 10^6/uL (4.00-5.40); WHITE BLOOD COUNT 8.6 10^3/uL (4.0-10.0)
[2023-01-05 20:38] LABS: CK-MB VALUE MASS 1.3 NG/ML (<3.6)
[2023-01-05 20:39] LABS: BLOOD UREA NITROGEN 10 MG/DL (9-23); CALCIUM LEVEL 9.1 MG/DL (8.5-10.1); CARBON DIOXIDE LEVEL 26 MMOL/L (20-31); CHLORIDE LEVEL 104 MMOL/L (98-107); CREATININE FOR GFR 0.72 MG/DL (0.55-1.30); GLOMERULAR FILTRATION RATE > 60.0 (>60); GLUCOSE, FASTING 80 MG/DL (60-100); POTASSIUM SERUM 3.7 MMOL/L (3.5-5.1); SODIUM LEVEL 139 MMOL/L (136-145)
[2023-01-05 20:47] LABS: CPK CREATINE PHOSPHOKINASE 161 U/L (34-145)
[2023-01-05 21:11] LABS: RSV AMPLIFICATION NEGATIVE (NEGATIVE)
== END 2023-01-05 21:45 | disposition left against medical advice (07) ==
LOC: M ED 18:24
DX: R07.9 Chest pain, unspecified (principal); R05.9 Cough, unspecified; F19.10 Other psychoactive substance abuse, uncomplicated; I10 Essential (primary) hypertension; F41.9 Anxiety disorder, unspecified; F32.A Depression, unspecified; F17.210 Nicotine dependence, cigarettes, uncomplicated; Z79.899 Other long term (current) drug therapy

== ENCOUNTER 2023-06-15 06:44 | Emergency (ER) | payer OTHER ==
[~2023-06-15] VITALS: Ht 177.8 cm; Wt 85.1 kg
[2023-06-15] MEDS ORDERED: AUGMENTIN 875 MG TAB PO ONE (07:25)
[2023-06-15] MEDS ORDERED: BOOSTRIX VACCINE (TETANUS/DIPHTH/ACEL. PERTUSSIS) 0.5ML SYR IM.IMMUN ONE (07:25)
[2023-06-15] MEDS ORDERED: BACITRACIN OINTMENT 30GM TUBE TOP ONE (07:25)
[2023-06-15] MEDS ORDERED: AUGM500T34 PO (07:50)
[2023-06-15 08:13] VITALS: BP 136/82; TEMP 98.5; O2SAT 100
== END 2023-06-15 08:19 | disposition home or self-care (01) ==
LOC: M ED 06:44
DX: S00.571A Other superficial bite of lip, initial encounter (principal); W55.01XA Bitten by cat, initial encounter; Y92.099 Unspecified place in other non-institutional residence as the place of occurrence of the external cause; I10 Essential (primary) hypertension; J45.909 Unspecified asthma, uncomplicated; F31.9 Bipolar disorder, unspecified; F50.00 Anorexia nervosa, unspecified; Z79.890 Hormone replacement therapy

== ENCOUNTER 2023-07-04 21:46 | Emergency (ER) | payer OTHER ==
[~2023-07-04] VITALS: Ht 177.8 cm; Wt 84.4 kg
[2023-07-04 21:46] VITALS: BP 155/92; TEMP 98.5; O2SAT 99
[~2023-07-04 21:46] MED LIST changes: +AUGM500T34 PO
[2023-07-04] MEDS ORDERED: LISI10TA22 (21:52)
[2023-07-05] MEDS ORDERED: ACETAMINOPHEN TAB 650MG DOSE (2X325MG) PO ONE (00:10)
[2023-07-05] MEDS ORDERED: IBUPROFEN 600MG TAB PO ONE (00:10)
== END 2023-07-05 00:35 | disposition home or self-care (01) ==
LOC: M ED 21:46
DX: S50.311A Abrasion of right elbow, initial encounter (principal); W19.XXXA Unspecified fall, initial encounter; Y92.009 Unspecified place in unspecified non-institutional (private) residence as the place of occurrence of the external cause; I10 Essential (primary) hypertension; J45.909 Unspecified asthma, uncomplicated; Z87.890 Personal history of sex reassignment; F17.200 Nicotine dependence, unspecified, uncomplicated; Z79.890 Hormone replacement therapy

== ENCOUNTER → 2024-02-14 | Outpatient (CLI) | payer OTHER ==
[~2024-02-14] MED LIST changes: +DOXY-440 PO; -DOXY-444 PO; +LISI10TA22
[2024-02-14 10:22] LABS: BASO # 0.1 10^3/uL (0.0-0.2); BASO % 1.6 % (0.0-1.0); EOS # 0.8 10^3/uL (0.0-0.5); EOS % 12.1 % (0.0-3.0); HEMATOCRIT 31.9 % (36.0-47.0); HEMOGLOBIN 9.1 g/dl (12.0-15.5); LYMPH # 1.6 10^3/uL (1.5-5.0); LYMPH % 25.7 % (24.0-44.0); MEAN CORPUSCULAR HEMOGLOBIN 20.8 pg (27.0-33.0); MEAN CORPUSCULAR HGB CONC 28.5 g/dl (32.0-36.5); MEAN CORPUSCULAR VOLUME 72.8 fl (80.0-96.0); MONO # 0.5 10^3/uL (0.0-0.8); MONO % 7.8 % (2.0-8.0); NEUTROPHILS # 3.3 10^3/uL (1.5-8.5); NEUTROPHILS % 52.5 % (36.0-66.0); PLATELET COUNT, AUTOMATED 453 10^3/uL (150-450); RED BLOOD COUNT 4.38 10^6/uL (4.00-5.40); WHITE BLOOD COUNT 6.4 10^3/uL (4.0-10.0)
[2024-02-14 10:52] LABS: IRON (FE) 14 UG/DL (50-170)
[2024-02-14 10:53] LABS: IMMUNOGLOBULIN A 216.8 MG/DL (40-350); IMMUNOGLOBULIN G 978 MG/DL (650-1600); VITAMIN B12 LEVEL 309 PG/ML (211-911)
== END ==
LOC: M LAB 08:56
PROVIDERS: ATTEND Internal Medicine Hematology
DX: D50.9 Iron deficiency anemia, unspecified (principal)

== ENCOUNTER → 2024-02-29 | Outpatient (CLI) | payer OTHER ==
[~2024-02-29] VITALS: Ht 157.5 cm; Wt 43.2 kg
[~2024-02-29] MED LIST changes: +ALBUTEROL SULFATE 2.5MG/0.5ML INH NEB SOLN INH PRN; +EPINEPHrine INJ 1 MG/ML 1ML AMP IM PRN; +NS 1,000 ML IV SCH; +diphenhydrAMINE 50MG/ML VIAL IV PRN; +methylPREDNISolone 125MG 2ML VIAL IV PRN
[2024-02-29 12:50] VITALS: BP 140/81; O2SAT 100
[2024-02-29] MEDS: IRON SUCROSE 300 MG in NS 250 ML OVER 90 MIN. IV ONE (13:33)
[2024-02-29 15:15] VITALS: BP 116/72; O2SAT 98
== END ==
LOC: M INFU 12:44
PROVIDERS: ATTEND Internal Medicine Hematology
DX: D50.9 Iron deficiency anemia, unspecified (principal)
CPT/HCPCS: 96365; 96366; J1756

== ENCOUNTER 2024-03-07 09:45 | Outpatient (CLI) | payer OTHER ==
[~2024-03-07] VITALS: Ht 177.8 cm; Wt 80.3 kg
[2024-03-07 09:45] VITALS: BP 141/77; O2SAT 100
[2024-03-07] MEDS: IRON SUCROSE 300 MG in NS 250 ML OVER 90 MIN. IV ONE (10:00)
[2024-03-07 11:35] VITALS: BP 129/60; O2SAT 100
== END 2024-03-07 11:40 ==
LOC: M INFU 09:45
PROVIDERS: ATTEND Internal Medicine Hematology
DX: D50.9 Iron deficiency anemia, unspecified (principal)
CPT/HCPCS: 96365; 96366; J1756

== ENCOUNTER 2024-03-14 10:45 | Outpatient (CLI) | payer OTHER ==
[2024-03-14 10:45] VITALS: BP 147/88; O2SAT 95
[2024-03-14] MEDS: IRON SUCROSE 300 MG in NS 250 ML IV ONE (11:12)
[2024-03-14 12:55] VITALS: BP 129/61; O2SAT 100
== END 2024-03-14 12:55 ==
LOC: M INFU 10:45
PROVIDERS: ATTEND Internal Medicine Hematology
DX: D50.9 Iron deficiency anemia, unspecified (principal)
CPT/HCPCS: 96365; 96366; J1756

== ENCOUNTER 2025-07-10 06:25 | Emergency (ER) | payer OTHER ==
[~2025-07-10 06:25] MED LIST changes: -ALBUTEROL SULFATE 2.5MG/0.5ML INH NEB SOLN INH PRN; +EMTR1TAB16 PO; -EPINEPHrine INJ 1 MG/ML 1ML AMP IM PRN; -IBUP-1022 PO; +IBUP600T42 PO; -NS 1,000 ML IV SCH; +RALT40TA PO; -diphenhydrAMINE 50MG/ML VIAL IV PRN; -methylPREDNISolone 125MG 2ML VIAL IV PRN
[2025-07-10] MEDS ORDERED: VALA1TAB5 (08:18)
[2025-07-10] MEDS ORDERED: IBUP600T42 PO (08:18)
[2025-07-10] MEDS: ACETAMINOPHEN 500 MG TAB PO ONE (08:52)
[2025-07-10 08:58] VITALS: BP 126/73; TEMP 97.1; O2SAT 100
== END 2025-07-10 09:32 | disposition home or self-care (01) ==
LOC: M ED 06:25
DX: S83.91XA Sprain of unspecified site of right knee, initial encounter (principal); Y92.9 Unspecified place or not applicable; Y93.9 Activity, unspecified; Y99.9 Unspecified external cause status; I10 Essential (primary) hypertension; K58.9 Irritable bowel syndrome, unspecified; F17.210 Nicotine dependence, cigarettes, uncomplicated; Z79.1 Long term (current) use of non-steroidal anti-inflammatories (NSAID); Z79.899 Other long term (current) drug therapy; Z79.890 Hormone replacement therapy